=== PATIENT | male | born 1990 | race Caucasian/White ===

== ENCOUNTER 2021-05-20 10:28 | Emergency (ER) | payer OTHER, SELFPAY ==
[2021-05-20 10:30] VITALS: BP 146/93; PULSE 116; RESP 20; TEMP 38.4; O2SAT 97; BMI 30.1
[2021-05-20 10:33] VITALS: BP 146/93; PULSE 116; RESP 20; TEMP 38.4; O2SAT 97
--- NOTE | 2021-05-20 10:38 | EKG12_ITS ---
Test Reason : Blood Pressure : / mmHG Vent. Rate : 110 BPM Atrial Rate : 110 BPM P-R Int : 148 ms QRS Dur : 084 ms QT Int : 298 ms P-R-T Axes : 050 067 034 degrees QTc Int : 403 ms Sinus tachycardia Otherwise normal ECG Confirmed by GEORGI FOY, CY ([id number]), metropolitan editor JACOB TURNER ([id number]) on 05/22/2021 8:08:24 AM Referred By: Confirmed By:CY LAUREANO MD
--- NOTE | 2021-05-20 10:39 | EDS_ITS ---
HPI History of Present Illness Chief Complaint: General Illness Informant: patient and EMS Narrative Narrative: 30-year-old male states that he became ill on . He tested positive yesterday for COVID-19. He states that he has had nausea and has thrown up one time. He notes shortness of breath cough headaches fevers diarrhea. He states that his and his 2 children are also sick. He is not vaccinated. [facility] Medical History Narcolepsy Home Medications albuterol sulfate [Ventolin HFA] 2 puff INHALATION Q4H PRN PRN #1 inhaler 05/20/21 [Rx Last Taken Unknown] doxycycline monohydrate 100 mg PO BID #14 capsule 05/20/21 [Rx Last Taken Unknown] ondansetron 4 mg PO Q6H PRN PRN #15 tab 05/20/21 [Rx Last Taken Unknown] Allergy/AdvReac Type Severity Reaction Status Date / Time No Known Allergies Allergy Verified 05/20/21 10:33 Social History (Updated 05/20/21 @ 10:[address] Wing Welsh DO) Smoking Status: Never smoker alcohol intake: never ROS ROS ED Constitutional Constitutional ED: Reports chills, fever(s) and sweats; Denies weight loss Eyes Eyes: Denies change in vision or diplopia ENT ENT ED: Reports rhinorrhea and sore throat; Denies ear pain Cardiovascular Cardiovascular: Denies chest pain, orthopnea, palpitations or racing heartbeat Respiratory/Chest Respiratory/Chest: Reports cough, dyspnea and dyspnea on exertion; Denies orthopnea Gastrointestinal Gastrointestinal: Reports diarrhea and nausea; Denies abdominal pain or vomiting Genitourinary Genitourinary ED: Denies dysuria, hematuria or urinary frequency Musculoskeletal Musculoskeletal: Reports myalgias; Denies arthralgias Integumentary Denies abscess or rash Neurologic Neurologic: Reports headache(s); Denies weakness Psychiatric Psychiatric: Denies anxiety, depression, suicidal ideation or suicidal thoughts Endocrine Endocrinology: Denies polydipsia, polyphagia or polyuria Allergic/Immunologic Allergic/Immunologic ED: Denies mouth swelling, tongue swelling or urticaria EXAM Physical Exam Const Vital Signs: 05/20/21 10:30 05/20/21 10:33 05/20/21 12:31 Temperature 101.1 F H 101.1 F H Temperature Source Temporal Temporal Pulse Rate 116 H 116 H 100 Respiratory Rate 20 H 20 H 18 Respiratory Effort Short of Breath Blood Pressure 146/93 H 146/93 H 114/67 Blood Pressure Mean 110 110 82 Pulse Ox 97 97 97 Oxygen Delivery Method Room Air Room Air Room Air Positive well nourished and well developed General Appearance ED: well developed HEENT Reports normocephalic, head/scalp atraumatic, TM's clear and moist mucous membranes Negative for trauma Tympanic Membrane ED: Yes TM's clear Eyes PERRL and EOMs intact bilaterally Neck no lymphadenopathy, supple and no JVD Resp normal respiratory effort and clear to auscultation bilaterally Cardio regular rate and no murmurs Rate: tachycardic GI normal to inspection, nondistended, normoactive bowel sounds and non-tender Palpation: soft Back/Spine no CVA tenderness and normal ROM Extremity normal to inspection General Extremety ED: Negative for edema General Extremity: Negative for edema Neuro oriented x3 and CN's II-XII intact bilaterally Sensorium / Orientation: alert Motor Exam: strength 5/5 throughout Psych mental status grossly normal Mood & Affect: Negative for depressed or tearful Skin no rashes or lesions noted and no wounds MDM MDM MDM Narrative Medical decision making narrative: My interpretation of the chest x-ray is infiltrative change in the right lung. White count 5.9 CMP glucose 112 AST 41 troponin of 5. CTA of the chest was obtained which demonstrates right lower lobe consolidation. Patient clearly has Covid and his lungs do not demonstrate the typical Covid pneumonitis but rather more of a bacterial infection. I will place him on doxycycline as well as Zofran. Return if worsening or concerns Lab Data Attestation: I reviewed the patient's lab results. Labs: Laboratory Results - last 24 hr 05/20/21 05/20/21 10:32 10:32 WBC 5.9 RBC 4.49 L Hgb 14.2 Hct 41.7 MCV 92.9 MCH 31.6 MCHC 34.1 RDW Std Deviation 40.8 RDW Coeff of [place] 11.9 Plt Count 129 L MPV 8.5 Immature Gran % (Auto) 0.300 Neut % (Auto) 70.0 Lymph % (Auto) 19.6 [place] % (Auto) 9.9 Eos % (Auto) 0.0 Baso % (Auto) 0.2 Absolute Neuts (auto) 4.1 Absolute Lymphs (auto) 1.15 Nucleated RBC % 0 Sodium 135 L Potassium 4.0 Chloride 100 Carbon Dioxide 30.0 Anion Gap 5 BUN 11 Creatinine 1.14 Estim Creat Clear Calc 99.61 Est GFR (MDRD) Af Amer 98 Est GFR (MDRD) Non-Af 81 BUN/Creatinine Ratio 9.6 L Glucose 112 H Calcium 8.5 Total Bilirubin 0.60 AST 41 H ALT 49 Alkaline Phosphatase 52 Troponin I High Sens 5 Total Protein 7.8 Albumin 4.1 Globulin 3.7 Albumin/Globulin Ratio 1.1 Radiography Diagnostic Testing: Clinical Impression(s) from Imaging Studies Chest X-Ray 05/20/21 11:09 IMPRESSION: Normal x-ray examination of the chest. Electronically Signed: Jonnathan Marquez MD at 11:19 EST Tel , Service support , Chest CTA 05/20/21 11:25 IMPRESSION: 1. No evidence of pulmonary embolism. 2. Right lower lobe consolidation concerning for pneumonia 3. Fatty infiltration of the liver. Electronically Signed: Jonnathan Marquez MD at 12:07 EST Tel , Service support , EKG Initial EKG: Attestation: I personally reviewed and interpreted this EKG as follows: Comments: Sinus tachycardia with a ventricular rate of 110 bpm Discharge Plan Triage Chief Complaint: General Illness ED Provider: Wing Welsh Dx/Rx/DC Orders Clinical Impression: COVID-19, Acute dyspnea, Thrombocytopenia associated with COVID-19, Pneumonia Instructions: Coronavirus Disease 2019 (COVID-19): Caring for Yourself or Others, ED Pneumonia (Adult) Prescriptions: New doxycycline monohydrate 100 MG capsule 100 mg PO BID Qty: 14 RF: 0 albuterol sulfate [Ventolin HFA] 1 INHALER inhaler 2 puff inhalation Q4H PRN PRN (Reason: Wheezing) Qty: 1 RF: 0 ondansetron [ondansetron] 4 MG tablet 4 mg PO Q6H PRN PRN (Reason: Nausea) Qty: 15 RF: 0 Primary Care Provider: Funmilayo Fallon NP Referrals: Funmilayo Fallon NP, [facility] [Primary Care Provider] - As Needed Disposition Disposition: Home, Self Care
--- NOTE | 2021-05-20 10:45 | ED.RN ---
NO OLD EKGS IN MUSE
[2021-05-20] MEDS: Ketorolac 30 MG/ML Syringe IV (10:49)
[2021-05-20 10:51] LABS: Absolute Lymphocyte Count 1.15 X10^3/uL (0.83-4.51); Absolute Neutrophil Count 4.1 X10^3/uL (2.0-7.7); Basophil# 0.01 X10^3/uL; Basophil% 0.2 % (0-1); Hematocrit 41.7 % (40-54); Hemoglobin 14.2 g/dL (13.0-16.5); Lymphocyte # 1.15 X10^3/ul (0.83-4.51); Lymphocyte % 19.6 % (19-41); Mean Corp Hgb Conc 34.1 g/dL (32-36); Mean Corpuscular Hgb 31.6 pg (27.0-32.0); Mean Corpuscular Volume 92.9 fL (80-94); Mean Platelet Vol. 8.5 fl (6.2-12.0); Monocyte# 0.58 X10^3/uL; Monocyte% 9.9 % (0-10); NRBC Flagged by Analyzer 0 % (0-5); Neutrophil # 4.11 X10^3/uL (2.7-7.7); Platelet Count 129 K/mm3 (150-450); RBC Distribution Width CV 11.9 % (11.6-14.6); RBC Distribution Width SD 40.8 fl (35.1-43.9); Red Blood Count 4.49 M/mm3 (4.6-6.2); White Blood Count 5.9 K/mm3 (4.4-11.0)
[2021-05-20 11:06] LABS: ALB/GLOB Ratio 1.1 RATIO (0.9-2.4); AST(SGOT) 41 U/L (15-37); Alanine Aminotransfer ALT/SGPT 49 U/L (16-61); Albumin, Serum 4.1 g/dL (3.2-5.0); Alkaline Phosphatase 52 U/L (45-117); Anion Gap 5 (5-15); BUN 11 mg/dL (7-18); BUN/Creat Ratio 9.6 RATIO (10-20); Calcium,Total 8.5 mg/dL (8.5-10.1); Chloride 100 mmol/L (98-107); Creatinine, Serum 1.14 mg/dL (0.70-1.30); EST Glomerular Filtration Rate 81 mL/min (>60); Est Glom Filt Rate - Afr Amer 98 mL/min (>60); Estimated Creatinine Clearance 99.61 ml/min; Globulin 3.7 g/dL (2.2-4.2); Glucose 112 mg/dL (74-106); Protein, Total 7.8 g/dL (6.4-8.2); Sodium Level 135 mmol/L (136-145); Troponin-I HS 5 pg/mL (3.0-78.0)
--- NOTE | 2021-05-20 11:09 | RAD_ITS ---
STUDY: X-RAY CHEST REASON FOR EXAM: Male, 30 years old. Dyspnea, history of Covid 19 TECHNIQUE: Single AP portable view of the chest. COMPARISON: None. FINDINGS: The lungs are clear and expanded. There is no demonstrated pleural abnormality. Normal size heart. Normal mediastinum and fernanda. Normal visualized pulmonary arteries. Normal visualized aortic arch and descending thoracic aorta. Normal visualized thoracic spine. Normal visualized ribs, clavicles, and shoulders. There is no demonstrated abnormality of the visualized soft tissue structures of the upper abdomen. RAD/Chest 1 View (Portable) IMPRESSION: Normal x-ray examination of the chest. Electronically Signed: Jonnathan Marquez MD at 11:19 EST Tel , Service support ,
--- NOTE | 2021-05-20 11:25 | CT_ITS ---
STUDY: CTA CHEST REASON FOR EXAM: Male, 30 years old. Dyspnea and positive for Covid 19, possible pulmonary embolism. RADIATION DOSAGE (If Supplied By Facility): CTDIvol = ( 11.92 ) mGy, DLP = ( 478.75 ) mGycm TECHNIQUE: The examination was performed with the intravenous administration of IV 100mL [id number]. Post-processing of the angiographic images was performed, with multiplanar reformation and 3D reconstruction. Individualized dose optimization techniques were used for this CT. COMPARISON: None. FINDINGS: Normal enhancement of the main pulmonary artery and right and left pulmonary arteries. Normal enhancement of the bilateral peripheral pulmonary arteries. There is no demonstrated pulmonary embolism. Normal thoracic aorta and visualized great vessels. There is no demonstrated aortic dissection. Normal heart and pericardium. Normal mediastinum. Normal hilar regions. Normal visualized trachea and bronchi. The lungs are well expanded. Consolidation in the superior segment of the right lower lobe concerning for pneumonia. Adjacent ill-defined opacities/infiltrates. Compressive atelectatic changes in the lower lobes. There are no pleural effusions. Normal chest wall structures. No demonstrated acute osseous changes. The visualized portions of the upper abdomen demonstrate diffuse fatty infiltration of the liver. The spleen is borderline. The adrenal glands are unremarkable. CT/CTA Chest W/WO Contrast IMPRESSION: 1. No evidence of pulmonary embolism. 2. Right lower lobe consolidation concerning for pneumonia 3. Fatty infiltration of the liver. Electronically Signed: Jonnathan Marquez MD at 12:07 EST Tel , Service support ,
[2021-05-20 12:31] VITALS: BP 114/67; PULSE 100; RESP 18; O2SAT 97
[2021-05-20 12:59] VITALS: BP 125/85; PULSE 100; RESP 18; O2SAT 94
== END 2021-05-20 13:30 | disposition home or self-care (01) ==
PROVIDERS: Emergency Provider Emergency Medicine; PCP Nurse Practitioner Primary Care
DX: U07.1 COVID-19 (principal); J15.9 Unspecified bacterial pneumonia; D69.59 Other secondary thrombocytopenia; G47.419 Narcolepsy without cataplexy; Z79.899 Other long term (current) drug therapy
CPT/HCPCS: 71045; 71275; 80053; 84484; 85025; 93005; 96361; 96374; 99285; J7040; Q9967; A4216